=== PATIENT | female | born 1965 | race Caucasian/White ===

== ENCOUNTER 2023-06-19 07:46 | Day surgery (SDC) | payer OTHER ==
[~2023-06-19] VITALS: Ht 167.6 cm; Wt 97.5 kg
[~2023-06-19 07:46] MED LIST: CLONAZEPAM0.5 MG PO; PROZAC20 MG PO; RESTORIL15 M1 PO; XIPRESA PO
[2023-06-19] MEDS ORDERED: METRONIDAZOLE/SODIUM CHLORIDE 500 MG/100 ML PIGGYBACK IV ONE ×2 (12:33→14:00)
[2023-06-19] MEDS ORDERED: BUPIVACAINE HCL/PF 0.5% 30ML ML ONE (12:33)
[2023-06-19] MEDS ORDERED: POVIDONE-IODINE 118 ML BOTT TOP ONE ×2 (12:33→14:00)
[2023-06-19] MEDS ORDERED: DIBUCAINE 15 GM OINT..GM. TUBE ONE (12:33)
[2023-06-19] MEDS ORDERED: CEFTRIAXONE SODIUM 2,000 MG VIAL ONE (12:33)
[2023-06-19] MEDS ORDERED: HEMOSTATIC MATRIX 1 KIT KIT TOP ONE ×2 (12:33→14:00)
[2023-06-19] MEDS ORDERED: LIDOCAINE HCL 1%/Epi 20ML VIAL IJ ONE ×2 (12:33→14:00)
[2023-06-19] MEDS ORDERED: CEFTRIAXONE SODIUM 2,000 MG VIAL IV ONE (14:00)
[2023-06-19] MEDS ORDERED: DIBUCAINE 30 GM TUBE RECTAL ONE (14:00)
[2023-06-19] MEDS ORDERED: BUPIVACAINE HCL 30 ML VIAL IJ ONE (14:00)
== END 2023-06-19 17:55 | disposition home or self-care (01) ==
LOC: CIR.AMB 07:46
PROVIDERS: ATTEND Colon & Rectal Surgery
DX: D09.8 Carcinoma in situ of other specified sites (principal); Z20.822 Contact with and (suspected) exposure to COVID-19

== ENCOUNTER 2024-08-26 06:00 | Day surgery (SDC) | payer OTHER ==
[2024-08-19 13:31] VITALS: BP 126/83
[~2024-08-26] VITALS: Ht 167.6 cm; Wt 89.8 kg
[2024-08-26] MEDS ORDERED: CEFTRIAXONE SODIUM 2,000 MG VIAL IV ONE (10:00)
[2024-08-26] MEDS ORDERED: METRONIDAZOLE/SODIUM CHLORIDE 500 MG/100 ML PIGGYBACK IV ONE (10:00)
[2024-08-26] MEDS ORDERED: LIDOCAINE HCL 1%/EPINEPHRINE 20ML VIAL IJ ONE (10:15)
[2024-08-26] MEDS ORDERED: BUPIVACAINE HCL 30 ML VIAL IJ ONE (10:15)
== END 2024-08-26 15:15 | disposition home or self-care (01) ==
LOC: CIR.AMB 06:00
PROVIDERS: ATTEND Colon & Rectal Surgery
DX: R15.9 Full incontinence of feces (principal); R32 Unspecified urinary incontinence
CPT/HCPCS: 64581; 95971; C1778

== ENCOUNTER 2024-09-09 05:22 | Day surgery (SDC) | payer OTHER ==
[2024-09-09] MEDS ORDERED: METRONIDAZOLE/SODIUM CHLORIDE 500 MG/100 ML PIGGYBACK IV ONE ×2 (08:06→09:15)
[2024-09-09] MEDS ORDERED: CEFTRIAXONE SODIUM 2,000 MG VIAL ONE (08:06)
[2024-09-09] MEDS ORDERED: CEFTRIAXONE SODIUM 2,000 MG VIAL IV ONE (09:15)
[2024-09-09] MEDS ORDERED: MORPHINE SULFATE 4 MG/ML VIAL IV ONE (11:05)
== END 2024-09-09 12:05 | disposition home or self-care (01) ==
LOC: CIR.AMB 05:22
PROVIDERS: ATTEND Colon & Rectal Surgery
DX: R15.9 Full incontinence of feces (principal); R32 Unspecified urinary incontinence
CPT/HCPCS: 64590; 95971; C1767